=== PATIENT | female | born 1970 | race Caucasian/White ===

== ENCOUNTER 2017-01-18 22:48 | Emergency (ER) | payer MEDICARE ==
[~2017-01-18] VITALS: Ht 172.7 cm; Wt 88.2 kg
[~2017-01-18 22:48] MED LIST: IMITREX 25MG TA25 MG PO; MORPHINE; MORPHINE 1515 MG/TAB PO; MORPHINE SULFAT60 M1 PO; PROMETHAZINE HC25 M2 PO; ROBAXIN 75750 MG/TAB PO; SEROQUEL; TRAZODONE50 MG PO; VALIUM10 MG PO
[2017-01-19 00:39] VITALS: BP 158/87
== END 2017-01-19 00:39 | disposition home or self-care (01) ==
LOC: ED 22:48
DX: F11.23 Opioid dependence with withdrawal (principal); R11.2 Nausea with vomiting, unspecified; T40.2X5A Adverse effect of other opioids, initial encounter; Y92.009 Unspecified place in unspecified non-institutional (private) residence as the place of occurrence of the external cause; F41.9 Anxiety disorder, unspecified; F31.9 Bipolar disorder, unspecified; G89.29 Other chronic pain; M54.9 Dorsalgia, unspecified